=== PATIENT | female | born 1975 | race Caucasian/White ===

== ENCOUNTER 2023-10-03 06:46 | Outpatient (CLI) | payer OTHER ==
--- NOTE | 2023-10-03 08:49 | MRI Report ---
PROCEDURE: Lumbar Spine WO INDICATIONS: LUMBAGO TECHNIQUE: Noncontrast sagittal T1 spin echo and T2 fast echo, sagittal STIR, axial T1 and T2 fast spin echo thr ough the lumbar spine. In cases with scoliosis, additional coronal T2 fast spin echo may be performe d. COMPARISON: None. FINDINGS: Image quality: Excellent. Alignment and Curvature: There is normal bony alignment. Bone Marrow: Marrow is of normal overall signal. No acute vertebral body compression fractures. Spinal Cord: Conus medullaris terminates at the top of L1 level. Visualized cord demonstrates anuj l signal and size. Paraspinous Soft Tissues: No paravertebral masses. T12-L1: Normal in appearance. L1-L2: Normal in appearance. L2-L3: In the right lateral recess, at the inferior aspect of the disc space, and slightly below t he disc space, is a spherical lesion measuring approximately 0.6 x 0.6 x 0.6 cm, either representing a small free disc fragment or a small schwannoma. There is some mass effect on the right L3 nerve elmer t in the right lateral recess. Reference axial T2 image 20 of series 6 and sagittal T2 image 7 of ser ies 2. No central canal stenosis or foraminal stenosis. L3-L4: Posterior disc bulge without significant canal stenosis. Right foraminal annulus tear with m oderate disc bulge subjacent to the exiting right L4 nerve root with moderate stenosis and mild impin gement on the right L3 nerve root. Reference T2 sagittal image 5 of series 2 and T2 axial image 27 of series 6. There is also a left foraminal annulus tear with disc bulge and mild to moderate left fora ligia narrowing. L4-L5: Minimal disc bulge. Mild facet hypertrophy. No canal stenosis or foraminal stenosis. L5-S1: Severe chronic disc height loss. Minimal disc bulge. Mild facet hypertrophy. No canal stenos is or foraminal stenosis. IMPRESSION: 1. There is a small spherical lesion in the right lateral recess at the inferior aspect of the L2-L3 disc measuring 0.6 cm. It may potentially represent a small free disc fragment versus a schwannoma. T here is mild mass effect on the right L3 nerve root. 2. At L3-L4, there are bilateral foraminal annulus tear is associated with foraminal disc bulges. Rec ommend correlation for presence or absence of L3 radicular symptoms. 3. Mild lower lumbar facet arthropathy. Comment: Recommend lumbar spine MRI with contrast to differentiate between a free disc fragment and a tiny schwannoma at L2-L3. Reviewed by: Aniket Kang MD on 10/03/2023 8:48 AM PST Approved by: Aniket Kang MD on 10/03/2023 8:48 AM PST Station ID: [id number]
== END 2023-10-03 06:47 | disposition home or self-care (01) ==
LOC: DI 06:46
PROVIDERS: ATTEND Physician Assistant
DX: M51.16 Intervertebral disc disorders with radiculopathy, lumbar region (principal); M47.26 Other spondylosis with radiculopathy, lumbar region; M47.27 Other spondylosis with radiculopathy, lumbosacral region; M51.17 Intervertebral disc disorders with radiculopathy, lumbosacral region

== ENCOUNTER 2024-03-28 07:02 | Outpatient (CLI) | payer OTHER ==
--- NOTE | 2024-03-28 19:01 | Ultrasound Report ---
PROCEDURE: Pelvic w/Transvaginal INDICATIONS: MENORRHAGIA TECHNIQUE: Real-time scanning was performed of the pelvic organs, with image documentation. Additional endovagi nal scanning was necessary due to incomplete visualization of the adnexal and endometrial structures by transabdominal scanning. COMPARISON: None. FINDINGS: Uterus: Uterus is retroverted and normal in size at 10.9 x 5 0.6-7.4 cm. The myometrium is heteroge neous. The endometrium measures 16.0 mm in combined thickness, with vascularity. 3 separate fibroid s are identified. Fibroid 1: Midline anterior subserosal, 2.3 x 1.7 x 2.2 cm. Fibroid 2: Left anterior subserosal, 1.9 x 1.5 x 1.9 cm. Fibroid 3: Right anterior subserosal, 1.9 x 1.1 x 1.5 cm. Ovaries: The right ovary measures 2.7 x 1.8 x 2.0 cm, with a calculated ovarian volume of 5.1 cc. T he left ovary measures 3.9 x 2.9 x 3.7 cm, with a calculated ovarian volume of 21.9 cc. The ovaries have a normal sonographic appearance. Less than 12 follicles can be seen in each ovary. No adnexal masses are seen. No cystic lesions measuring greater than 3 cm. Other: No pathologic free abdominal or pelvic fluid. IMPRESSION: 1. Endometrial stripe is prominent, with vascularity. Consider possible endometrial hyperplasia. 2. Multiple fibroids are present. No obvious subserosal component. 3. Ovaries are unremarkable. Comment: Consider [employer] referral for thickened endometrium with increased vascularity. Reviewed by: Aniket Kang MD on 03/28/2024 7:00 PM PDT Approved by: Aniket Kang MD on 03/28/2024 7:00 PM PDT Station ID: [id number]
== END 2024-03-28 07:03 | disposition home or self-care (01) ==
LOC: DI 07:02
PROVIDERS: ATTEND Nurse Practitioner Family
DX: N92.0 Excessive and frequent menstruation with regular cycle (principal); D25.2 Subserosal leiomyoma of uterus